=== PATIENT | female | born 1995 | race African-American/Black ===

== ENCOUNTER 2017-01-10 09:47 | Emergency (ER) | payer OTHER ==
[2017-01-10 10:10] VITALS: BP 117/71; PULSE 75; RESP 18
[2017-01-10 10:20] VITALS: TEMP 98.2
[2017-01-10] MEDS ORDERED: KETOROLAC 60 MG/2 ML VIAL IM STA ×2 (10:29)
--- NOTE | 2017-01-10 10:32 | ED ---
General Adult HPI - General Chief complaint: Headache Stated complaint: headache Time Seen by Provider: 01/10/17 10:23 Source: patient, RN notes reviewed Mode of arrival: ambulatory Limitations: no limitations - History of Present Illness Initial comments: Patient 21-year-old female who presents emergency room today with chief complaint of a migraine headache. She states started this morning when she woke up. She states consistent with migraine headaches that she's had in the past. She states usually uses Tylenol or aspirin. She states came here to the emergency room patient noticed a bump the back of her head. She states the bump has been there for years. She states she was unsure if it may be related to these headaches. She denies any other complaints or symptoms. Patient denies any recent fever, chills, shortness of breath, chest pain, back pain, abdominal pain, nausea or vomiting, numbness or tingling, dysuria or hematuria, constipation or diarrhea, visual changes, or any other complaints. - Related Data Home Medications Medication Instructions Recorded Confirmed Acetaminophen Tab [Tylenol Tab] 325 mg PO Q4H PRN 01/10/17 01/10/17 Allergies Allergy/AdvReac Type Severity Reaction Status Date / Time No Known Allergies Allergy Verified 01/10/17 10:24 Review of Systems ROS Statement: Those systems with pertinent positive or pertinent negative responses have been documented in the HPI. ROS Other: All systems not noted in ROS Statement are negative. Past Medical History Past Medical History: No Reported History History of Any Multi-Drug Resistant Organisms: None Reported Past Surgical History: No Surgical Hx Reported Past Psychological History: Depression Smoking Status: Never smoker Past Alcohol Use History: None Reported Past Drug Use History: None Reported General Exam - General Exam Comments Initial Comments: General: The patient is awake and alert, in no distress, and does not appear acutely ill. Eye: Pupils are equal, round and reactive to light, extra-ocular movements are intact. No nystagmus. There is normal conjunctiva bilaterally. No signs of icterus. Ears, nose, mouth and throat: There are moist mucous membranes and no oral lesions. Neck: The neck is supple, there is no tenderness or JVD. Cardiovascular: There is a regular rate and rhythm. No murmur, rub or gallop is appreciated. Respiratory: Lungs are clear to auscultation, respirations are non-labored, breath sounds are equal. No wheezes, stridor, rales, or rhonchi. Gastrointestinal: Soft, non-distended, non-tender abdomen without masses or organomegaly noted. There is no rebound or guarding present. No CVA tenderness. Bowel sounds are unremarkable. Musculoskeletal: Normal ROM, no tenderness. Strength 5/5. Sensation intact. Pulses equal bilaterally 2+. Neurological: A&O x 3. CN II-XII intact, There are no obvious motor or sensory deficits. Coordination appears grossly intact. Speech is normal. Skin: Skin is warm and dry and no rashes or lesions are noted. She does have a bump located to the left posterior aspect of the scalp. It is firm on palpation. Nontender. No redness. No fluctuance. Psychiatric: Cooperative, appropriate mood & affect, normal judgment. Limitations: no limitations Course Vital Signs 01/10/17 01/10/17 10:07 10:19 Temperature 99.0 F 98.2 F Pulse Rate 75 Respiratory 18 Rate Blood Pressure 117/71 O2 Sat by Pulse 100 Oximetry Medical Decision Making - Medical Decision Making 21-year-old female with history of migraines presenting for migraine headache. States came here because she noticed this bump to the back of her head several years ago and was unsure if it could be related to these headaches. The bump is nontender. She is advised follow-up the family doctor. Given shot of Toradol here in the emergency room for migraine. Disposition Clinical Impression: Migraine Disposition: HOME SELF-CARE Condition: Good Instructions: Migraine Headache (ED) Additional Instructions: His follow-up the family doctor about the bump to the back of the head for further evaluation. Please return to emergency room if any symptoms increase or worsen or for any other concerns. Referrals: None,Stated [Primary Care Provider] - 1-2 days Raj Samaniego MD [STAFF PHYSICIAN] - 1-2 days Time of Disposition: 10:31
== END 2017-01-10 11:19 | disposition home or self-care (01) ==
LOC: EC 09:47
DX: G43.909 Migraine, unspecified, not intractable, without status migrainosus (principal)
CPT/HCPCS: 99283; 96372; J1885

== ENCOUNTER 2024-02-27 20:02 | Emergency (ER) | payer OTHER ==
--- NOTE | 2024-02-27 21:40 | US ---
EXAMINATION TYPE: Transabdominal DATE OF EXAM: 02/27/2024 9:13 PM COMPARISON: NONE CLINICAL INDICATION: Female, 28 years old with history of abd cramping; cramping x 2 days, , no b leeding EXAM PERFORMED: OBTA/OBTV EXAM MEASUREMENTS: GESTATIONAL AGE / DATING Physician Established: Not yet established Dates by LMP: (6 weeks/2 days) EDC: 10/20/2024 Dates by First Scan: No previous this is first scan Dates by Current Scan for: (5 weeks/5 days) EDC: 10/24/2024 MATERNAL ANATOMY Uterus: 9.6 x 5.6 x 5.5cm Right Ovary: 2.9 x 3.0 x 2.8cm Left Ovary: 2.5 x 2.0 x 1.9cm Post CDS / Adnexa: wnl Presence of free fluid: no Presence of corpus luteal cyst: yes, right ovary =2.2 x 1.9 x 2.2cm Presence of subchorionic bleed: no GESTATION / SURVEY CRL: 1.0cm (5 weeks/5 days) MSD: wnl Yolk Sac (normal less than 6mm): 0.2cm IUP: gestational sac with yolk sac seen today, not pole yet Date of LMP: 01/14/2024 Beta HcG (if available): pending IMPRESSION: 1. Gestational sac and yolk sac consistent with an early intrauterine . 2. Correlate with beta hCG. No other significant abnormality seen.
[2024-02-27] MEDS: ACETAMINOPHEN TAB 325 MG TAB PO STA (22:08)
[2024-02-27] MEDS: SODIUM CHLORIDE 0.9% 1,000 ML IV STA (22:08)
--- NOTE | 2024-02-27 22:11 | ED ---
General Adult HPI - General Chief complaint: OB/Uterine Contractions Stated complaint: preg, abd pain Time Seen by Provider: 02/27/24 22:09 Source: patient, RN notes reviewed Mode of arrival: ambulatory Limitations: no limitations - History of Present Illness Initial comments: 28-year-old female approximately 5 weeks gestation presenting to the ER w ith a chief complaint of abdominal cramping. Patient states since finding out she was she has been having abdominal cramping which has increased in the past 2 days. She states the cramping has been so intense she has been unable to complete daily activities which brought her to the ER. She has been following up with [facility] in [facility] and had ultrasounds and serial hCGs completed at that time. She reports ultrasounds were unable to identify an IUP and her serial hCGs have been rising appropriately. She also reports she has been feeling fatigued recently. She denies any vaginal bleeding or discharge, urinary complaints, chest pain, shortness of breath, fevers, chills or periph eral edema. - Related Data Home Medications Medication Instructions Recorded Confirmed Acetaminophen Tab [Tylenol Tab] 325 mg PO Q4H PRN 01/10/17 01/10/17 Allergies Allergy/AdvReac Type Severity Reaction Status Date / Time No Known Allergies Allergy Verified 02/27/24 20:07 Review of Systems ROS Statement: Those systems with pertinent positive or pertinent negative responses have been documented in the HPI. ROS Other: All systems not noted in ROS Statement are negative. Past Medical History Past Medical History: No Reported History History of Any Multi-Drug Resistant Organisms: None Reported Past Surgical History: No Surgical Hx Reported Past Psychological History: Depression Smoking Status: Never smoker Past Alcohol Use History: None Reported Past Drug Use History: None Reported General Exam Limitations: no limitations General appearance: alert, in no apparent distress Respiratory exam: Present: normal lung sounds bilaterally. Absent: respiratory distress, wheezes, rales, rhonchi, stridor Cardiovascular Exam: Present: regular rate, normal rhythm, normal heart sounds. Absent: systolic murmur, diastolic murmur, rubs, gallop, clicks GI/Abdominal exam: Present: soft, tenderness (Bilateral lower quadrants), normal bowel sounds Extremities exam: Present: normal inspection, full ROM, normal capillary refill. Absent: tenderness, pedal edema, joint swelling, calf tenderness Skin exam: Present: warm, dry, intact, normal color. Absent: rash Course Vital Signs 02/27/24 02/27/24 20:04 23:13 Temperature 98 F 98.2 F Pulse Rate 74 70 Respiratory 18 16 Rate Blood Pressure 142/86 105/71 O2 Sat by Pulse 100 98 Oximetry Medical Decision Making - Medical Decision Making Was pt. sent in by a medical professional or institution (HILARIO Caballero, [employer] OPERATOR, urgent care, hospital, or correction...) When possible be specific @ -No Did you speak to anyone other than the patient for history (EMS, parent, family, police, friend...)? What history was obtained from this source @ -No Did you review nursing and triage notes (agree or disagree)? Why? @ -I reviewed and agree with nursing and triage notes Were old charts reviewed (outside hosp., previous admission, EMS record, old EKG, old radiological studies, urgent care reports/EKG's, correction records)? Report findings @ -No old charts were reviewed Differential Diagnosis (chest pain, altered mental status, abdominal pain women, abdominal pain men, vaginal bleeding, weakness, fever, dyspnea, syncope, headache, dizziness, GI bleed, back pain, seizure, CVA, palpatations, mental health, musculoskeletal)? @ -Differential Abdominal Pain Women:Appendicitis, Cholecystitis, diverticulosis, ischemic bowel, pancreatitis, hepatitis, UTI, gastroenteritis, AAA, incarcerated hernia, bowel obstruction, constipation, inflammatory bowel, hepatitis, peptic ulcer disease, splenic infarction, perforated viscus, vulvitis, ovarian torsion, PID, kidney stone, placenta abruption, this is not meant to be an all-inclusive list EKG interpreted by me (3pts min.). @ -None X-rays interpreted by me (1pt min.). @ -[None done CT interpreted by me (1pt min.). @ -None done U/S interpreted by me (1pt. min.). @ - ultrasound significant for a single early IUP. No pole identified. Gestational sac with yolk sac seen. What testing was considered but not performed or refused? (CT, X-rays, U/S, labs)? Why? @ -None What meds were considered but not given or refused? Why? @ -None Did you discuss the management of the patient with other professionals (professionals i.e. HILARIO Caballero, [employer] OPERATOR, lab, RT, psych nurse, social worker clinical, corking machine operator, teacher, court security officer, caser)? Give summary @ -No Was smoking cessation discussed for >3mins.? @ -No Was critical care preformed (if so, how long)? @ -No Were there social determinants of health that impacted care today? How? (Homelessness, low income, unemployed, alcoholism, drug addiction, transportation, low edu. Level, literacy, decrease access to med. care, shelter, rehab)? @ -Patient is currently uninsured Was there de-escalation of care discussed even if they declined (Discuss DNR or withdrawal of care, Hospice)? DNR status @ -No What co-morbidities impacted this encounter? (DM, HTN, Smoking, COPD, CAD, Cancer, CVA, ARF, Chemo, Hep., AIDS, mental health diagnosis, sleep apnea, morbid obesity)? @ - Was patient admitted / discharged? Hospital course, mention meds given and route, prescriptions, significant lab abnormalities, going to OR and other pertinent info. @ -Discharge. 28-year-old female presented to the ER with a chief complaint of abdominal cramping. Patient is approximately 5 weeks gestation. History and physical exam completed. Vitals stable. Patient no signs of acute distress and nontoxic-appearing. Exam unremarkable. Laboratory studies obtained unimpressive. Serum hCG 9823. Urine analysis showing trace protein likely indicative of dehydration. ultrasound remarkable for a single IUP with gestational sac and yolk sac seen. No pole identified. This may be related to gestational age. Patient's blood type is O+. Rhogam not indicated. Patient did receive 1 L IV fluids and by mouth Tylenol for symptom control in the ER. Upon reevaluation, patient resting comfortably in exam room no signs of acute distress. Results discussed with patient, all questions answered. Patient stable for discharge at this time. Advise close follow-up with [facility], referral given. Strict return parameters discussed. Patient discharged in stable condition. Zofran starter pack given. Patient verbally expressed understanding and agreement with care plan. Case discussed with ED attending, . Undiagnosed new problem with uncertain prognosis? @ -No Drug Therapy requiring intensive monitoring for toxicity (Heparin, Nitro, Insulin, Cardizem)? @ -No Were any procedures done? @ -No Diagnosis/symptom? @ -Abdominal cramping in Acute, or Chronic, or Acute on Chronic? @ -Acute Uncomplicated (without systemic symptoms) or Complicated (systemic symptoms)? @ -Uncomplicated Side effects of treatment? @ -No Exacerbation, Progression, or Severe Exacerbation? @ -No Poses a threat to life or bodily function? How? (Chest pain, USA, OR, pneumonia, PE, COPD, DKA, ARF, appy, cholecystitis, CVA, Diverticulitis, Homicidal, Suicidal, threat to staff... and all critical care pts) @ -No - Lab Data Result diagrams: 02/27/24 22:15 02/27/24 22:15 Lab Results 02/27/24 02/27/24 02/27/24 Range/Units 22:10 22:15 22:15 WBC 8.1 (3.8-10.6) k/uL RBC 3.94 (3.80-5.40) m/uL Hgb 12.0 (11.4-16.0) gm/dL Hct 36.6 (34.0-46.0) % MCV 92.9 (80.0-100.0) fL MCH 30.4 (25.0-35.0) pg MCHC 32.8 (31.0-37.0) g/dL RDW 12.1 (11.5-15.5) % Plt Count 298 (150-450) k/uL MPV 7.6 Neutrophils % 41 % Lymphocytes % 48 % Monocytes % 6 % Eosinophils % 3 % Basophils % 1 % Neutrophils # 3.3 (1.3-7.7) k/uL Lymphocytes # 3.8 (1.0-4.8) k/uL Monocytes # 0.5 (0-1.0) k/uL Eosinophils # 0.2 (0-0.7) k/uL Basophils # 0.0 (0-0.2) k/uL Sodium 137 (137-145) mmol/L Potassium 3.8 (3.5-5.1) mmol/L Chloride 110 H (98-107) mmol/L Carbon Dioxide 18 L (22-30) mmol/L Anion Gap 9 mmol/L BUN 9 (7-17) mg/dL Creatinine 0.61 (0.52-1.04) mg/dL Est GFR (CKD-EPI)AfAm >90 (>60 ml/min/1.73 sqM) Est GFR (CKD-EPI)NonAf >90 (>60 ml/min/1.73 sqM) Glucose 90 (74-99) mg/dL Calcium 8.7 (8.4-10.2) mg/dL Total Bilirubin 0.4 (0.2-1.3) mg/dL AST 20 (14-36) U/L ALT 13 (4-34) U/L Alkaline Phosphatase 72 (38-126) U/L Total Protein 6.6 (6.3-8.2) g/dL Albumin 3.8 (3.5-5.0) g/dL HCG, Quant 9823.8 mIU/mL Urine Color Urine Appearance (Clear) Urine pH (5.0-8.0) Ur Specific [place] (1.001-1.035) Urine Protein (Negative) Urine Glucose (UA) (Negative) Urine Ketones (Negative) Urine Blood (Negative) Urine Nitrite (Negative) Urine Bilirubin (Negative) Urine Urobilinogen (<2.0) mg/dL Ur Leukocyte Esterase (Negative) Blood Type O Positive Blood Type Recheck O Pos Bld Type Recheck Status No 02/27/24 Range/Units 22:21 WBC (3.8-10.6) k/uL RBC (3.80-5.40) m/uL Hgb (11.4-16.0) gm/dL Hct (34.0-46.0) % MCV (80.0-100.0) fL MCH (25.0-35.0) pg MCHC (31.0-37.0) g/dL RDW (11.5-15.5) % Plt Count (150-450) k/uL MPV Neutrophils % % Lymphocytes % % Monocytes % % Eosinophils % % Basophils % % Neutrophils # (1.3-7.7) k/uL Lymphocytes # (1.0-4.8) k/uL Monocytes # (0-1.0) k/uL Eosinophils # (0-0.7) k/uL Basophils # (0-0.2) k/uL Sodium (137-145) mmol/L Potassium (3.5-5.1) mmol/L Chloride (98-107) mmol/L Carbon Dioxide (22-30) mmol/L Anion Gap mmol/L BUN (7-17) mg/dL Creatinine (0.52-1.04) mg/dL Est GFR (CKD-EPI)AfAm (>60 ml/min/1.73 sqM) Est GFR (CKD-EPI)NonAf (>60 ml/min/1.73 sqM) Glucose (74-99) mg/dL Calcium (8.4-10.2) mg/dL Total Bilirubin (0.2-1.3) mg/dL AST (14-36) U/L ALT (4-34) U/L Alkaline Phosphatase (38-126) U/L Total Protein (6.3-8.2) g/dL Albumin (3.5-5.0) g/dL HCG, Quant mIU/mL Urine Color Light Yellow Urine Appearance Clear (Clear) Urine pH 7.0 (5.0-8.0) Ur Specific [place] 1.028 (1.001-1.035) Urine Protein Trace H (Negative) Urine Glucose (UA) Negative (Negative) Urine Ketones Negative (Negative) Urine Blood Negative (Negative) Urine Nitrite Negative (Negative) Urine Bilirubin Negative (Negative) Urine Urobilinogen 2.0 (<2.0) mg/dL Ur Leukocyte Esterase Negative (Negative) Blood Type Blood Type Recheck Bld Type Recheck Status - Radiology Data Radiology results: report reviewed, image reviewed Disposition Clinical Impression: Abdominal cramping affecting Disposition: HOME SELF-CARE Condition: Stable Instructions (If sedation given, give patient instructions): Abdominal Pain in (ED), at 7 to 10 Weeks (ED) Additional Instructions: Please follow-up with [facility] as scheduled. Return to the ER for any new or worsening concerns. Is patient prescribed a controlled substance at d/c from ED?: No Referrals: None,Stated [Primary Care Provider] - 1-2 days Kayy Walden MD [STAFF PHYSICIAN] - 1-2 days Time of Disposition: 23:03
[2024-02-27 22:28] LABS: Basophils % (A) 1 %; Eosinophils # (A) 0.2 k/uL (0-0.7); Eosinophils % (A) 3 %; HCT 36.6 % (34.0-46.0); Lymphocytes # (A) 3.8 k/uL (1.0-4.8); Lymphocytes % (A) 48 %; MCH 30.4 pg (25.0-35.0); MCHC 32.8 g/dL (31.0-37.0); MCV 92.9 fL (80.0-100.0); Mean Platelet Volume 7.6; Monocytes # (A) 0.5 k/uL (0-1.0); Monocytes % (A) 6 %; Neutrophils # (A) 3.3 k/uL (1.3-7.7); Neutrophils % (A) 41 %; Platelet Count 298 k/uL (150-450); RBC 3.94 m/uL (3.80-5.40); RDW 12.1 % (11.5-15.5); WBC 8.1 k/uL (3.8-10.6)
[2024-02-27 22:35] LABS: Appearance,Urine Clear (Clear); Bilirubin,Urine Negative (Negative); Blood,Urine Negative (Negative); Color,Urine Light Yellow; Glucose,Urine (UA) Negative (Negative); Ketones,Urine Negative (Negative); Leukocyte Esterase,Urine Negative (Negative); Nitrite,Urine Negative (Negative); Protein,Urine Trace (Negative); Specific Gravity,Urine 1.028 (1.001-1.035)
[2024-02-27 22:39] LABS: ALT 13 U/L (4-34); AST 20 U/L (14-36); African American GFR (CKD) >90 (>60 ml/min/1.73 sqM); Albumin 3.8 g/dL (3.5-5.0); Alkaline Phosphatase 72 U/L (38-126); Anion Gap 9 mmol/L; Blood Urea Nitrogen 9 mg/dL (7-17); Calcium 8.7 mg/dL (8.4-10.2); Carbon Dioxide 18 mmol/L (22-30); Chloride 110 mmol/L (98-107); Glucose 90 mg/dL (74-99); Non-African American GFR(CKD) >90 (>60 ml/min/1.73 sqM); Potassium 3.8 mmol/L (3.5-5.1); Sodium 137 mmol/L (137-145); Total Bilirubin 0.4 mg/dL (0.2-1.3); Total Protein 6.6 g/dL (6.3-8.2)
[2024-02-27 22:55] LABS: HCG,Quantitative Serum 9823.8 mIU/mL
[2024-02-27] MEDS: ONDANSETRON 4 MG ODT STARTER PACK 2 TAB BTL PO STA (23:11)
[2024-02-27 23:19] VITALS: BP 105/71; PULSE 70; RESP 16; TEMP 98.2
== END 2024-02-27 23:19 | disposition home or self-care (01) ==
LOC: EC 20:02
DX: O26.891 Other specified pregnancy related conditions, first trimester (principal); R10.31 Right lower quadrant pain; R10.32 Left lower quadrant pain; Z3A.01 Less than 8 weeks gestation of pregnancy
CPT/HCPCS: 36415; 86900; 86901; 80053; 85025; 81003; 84702; 76801; 76817; 99284; 96360; S0119